=== PATIENT | female | born 1965 | race American Indian/Alaskan Native ===

== ENCOUNTER 2022-04-22 09:12 | Emergency (ER) | payer BC ==
[2022-04-22 09:18] VITALS: BP 174/89
--- NOTE | 2022-04-22 09:32 | Emergency Department Report ---
ED Recheck HPI - General Chief Complaint: Medical Clearance Stated Complaint: STUCK BY NEEDLE Time Seen by Provider: 04/22/22 09:27 Source: patient Mode of arrival: Ambulatory Limitations: No Limitations - History of Present Illness Initial Comments: This is a pleasant 56-year-old [employer] employee that was stopped by a blood glucose lancet last night between 11:30 PM and 12:30 AM. She has gone to [facility] and they have sent her here to the ER for postexposure evaluation. I have discussed this with the medical secretary teacher Elma and ERN, for the nurse is not in today. Patient states that she normally disposes of the lancet immediately. However, she put her alcohol pad down in the lancet and then felt a poke to her left ring finger. Patient is aware that she needs to complete a verge report if that has not been done already. Her postexposure paperwork is in ERN department. This was confirmed with Onelia. - Related Data Previous Rx's Medication Instructions Recorded Last Taken Type Bictegrav/Emtricit/Tenofov Ala 1 each PO DAILY #30 04/22/22 Unknown Rx [Biktarvy 30-120-15 mg Tablet] Dolutegravir [Tivicay] 50 mg PO DAILY #30 04/22/22 Unknown Rx Allergies Allergy/AdvReac Type Severity Reaction Status Date / Time No Known Allergies Allergy Unverified 04/22/22 09:18 ED Review of Systems ROS: Stated complaint: STUCK BY NEEDLE Other details as noted in HPI Comment: All other systems reviewed and negative ED Past Medical Hx - Past Medical History Previous Medical History?: Yes Hx Hypertension: Yes Hx Diabetes: Yes - Surgical History Past Surgical History?: No - Family History Family history: no significant - Medications Home Medications: Home Medications Medication Instructions Recorded Confirmed Last Taken Type Bictegrav/Emtricit/Tenofov Ala 1 each PO DAILY #30 04/22/22 Unknown Rx [Biktarvy 30-120-15 mg Tablet] Dolutegravir [Tivicay] 50 mg PO DAILY #30 04/22/22 Unknown Rx ED Physical Exam - General Limitations: No Limitations General appearance: alert, in no apparent distress - Head Head exam: Present: atraumatic, normocephalic - Eye Eye exam: Present: normal appearance - ENT ENT exam: Present: mucous membranes moist - Neck Neck exam: Present: normal inspection - Respiratory Respiratory exam: Present: normal lung sounds bilaterally. Absent: respiratory distress - Cardiovascular Cardiovascular Exam: Present: regular rate, normal rhythm. Absent: systolic murmur, diastolic murmur, rubs, gallop - GI/Abdominal GI/Abdominal exam: Present: soft, normal bowel sounds - Extremities Exam Extremities exam: Present: normal inspection - Back Exam Back exam: Present: normal inspection - Neurological Exam Neurological exam: Present: alert, oriented X3 - Psychiatric Psychiatric exam: Present: normal affect, normal mood - Skin Skin exam: Present: warm, dry, intact, normal color. Absent: rash ED Course Vital Signs 04/22/22 04/22/22 09:15 09:41 Temperature 98 F Pulse Rate 91 H Respiratory 16 18 Rate Blood Pressure 174/89 [Right] O2 Sat by Pulse 99 99 Oximetry - Reevaluation(s) Reevaluation #1: 04/22/22 10:[address] Todd ED Recheck MDM - Core Measures Measure Exclusions: not indicated - Medical Decision Making I have spoke with Dr. Zhou, infectious disease. He recommends that the patient receive postexposure HIV prophylaxis including Truvada and Tivicay. Patient was given a dose in the ER. I have called the pharmacy and they have advised me to write prescriptions for these medications and send the patient to the outpatient pharmacy they will fill them. Patient has had a hepatitis and HIV panel sent. I have called the charge nurse Jayne on [address]. She can firms that the patient involved is HIV positive. I have reviewed the medical record and confirmed this. Viral load and CD4 noted. For cross-referenced the patient is Suki Kidd [id number] Ms. Mandel is aware that the patient is HIV positive. I have advised Ms. Mandel to follow-up with employee health nurse in the morning. She is aware that she needs to be followed over time. Patient being discharged home with prescriptions and follow-up with employee health in the morning. We should follow-up on her lab work as well as the patient's lab work. Patient verbalizes understanding of plan of care. Patient is appropriately concerned about her exposure. Vital Signs 04/22/22 04/22/22 09:15 09:41 Temperature 98 F Pulse Rate 91 H Respiratory 16 18 Rate Blood Pressure 174/89 [Right] O2 Sat by Pulse 99 99 Oximetry Critical care attestation.: If time is entered above; I have spent that time in minutes in the direct care of this critically ill patient, excluding procedure time. ED Disposition Clinical Impression: Needle stick injury of finger Disposition: 01 HOME / SELF CARE / HOMELESS Is pt being admited?: No Does the pt Need Aspirin: No Condition: Stable Additional Instructions: FOLLOW UP WITH [facility] IN AM Prescriptions: Bictegrav/Emtricit/Tenofov Ala [Biktarvy 30-120-15 mg Tablet] 1 each PO DAILY #30 Dolutegravir [Tivicay] 50 mg PO DAILY #30 Time of Disposition: 09:32
[2022-04-22] MEDS ORDERED: DOLUTEGRAVIR 50 MG TAB PO SCH (10:00)
[2022-04-22] MEDS ORDERED: DOLUTEGRAVIR 50 MG, TENOFOVIR 300 MG, EMTRICITABINE 200 MG PO SCH (10:00)
[2022-04-22] MEDS ORDERED: EMTRICITABINE 200 MG CAP PO NR (10:30)
[2022-04-22] MEDS ORDERED: TENOFOVIR 300 MG TAB PO NR (10:30)
[2022-04-22] MEDS ORDERED: DOLUTEGRAVIR 50 MG TAB PO NR (10:30)
[2022-04-22 14:48] LABS: Hepatitis B Surface Antigen Non-Reactive (Negative); Hepatitis C Virus Antibody Non-Reactive (NonReactive)
== END 2022-04-22 11:06 | disposition home or self-care (01) ==
LOC: ED 09:12
DX: S61.235A Puncture wound without foreign body of left ring finger without damage to nail, initial encounter (principal); I10 Essential (primary) hypertension; E11.9 Type 2 diabetes mellitus without complications; Z79.899 Other long term (current) drug therapy; W46.0XXA Contact with hypodermic needle, initial encounter; Y93.89 Activity, other specified; Y92.89 Other specified places as the place of occurrence of the external cause; Y99.8 Other external cause status
CPT/HCPCS: 36415; 80074; 87806; 99284